=== PATIENT | female | born 1935 | race Caucasian/White ===

== ENCOUNTER 2020-08-15 07:56 | Emergency (ER) | payer OTHER, SELFPAY ==
[~2020-08-15] VITALS: Ht 157.5 cm; Wt 59.0 kg
--- NOTE | 2020-08-15 08:00 | NUR ---
Dr. Fletcher evaluating pt at this time
--- NOTE | 2020-08-15 08:05 | NUR ---
85/F C/O COUGH AND BODY ACHES X 2 DAYS AFTER GETTING FLU VACCINE. VSS. NAD. hx- OA, back pain, GERD, UTI's NKA
[2020-08-15 08:10] VITALS: BP 132/68
--- NOTE | 2020-08-15 08:30 | NUR ---
urszula VIZCARRA swab collected and walked to lab
--- NOTE | 2020-08-15 09:00 | NUR ---
DPatient discharged with v/s stable. Written and verbal after care instructions given and explained. Patient verbalized understanding. Ambulatory with steady gait. All questions addressed prior to discharge. Advised to follow up with PMD.
[2020-08-15 09:14] VITALS: BP 132/68
== END 2020-08-15 09:00 | disposition home or self-care (01) ==
LOC: MED 07:56
DX: R05 Cough (principal); Z98.890 Other specified postprocedural states
CPT/HCPCS: 99283